=== PATIENT | male | born 1995 | race Native Hawaiian/Other Pacific Islander ===

== ENCOUNTER 2019-06-08 15:30 | Emergency (ER) | payer BC ==
[~2019-06-08] VITALS: Ht 167.6 cm; Wt 117.5 kg
[2019-06-08 16:50] VITALS: BP 153/80; TEMP 98
== END 2019-06-08 16:50 | disposition home or self-care (01) ==
LOC: ED 15:30
DX: S60.222A Contusion of left hand, initial encounter (principal); X58.XXXA Exposure to other specified factors, initial encounter; Y93.89 Activity, other specified; Y92.89 Other specified places as the place of occurrence of the external cause
CPT/HCPCS: 99282

== ENCOUNTER 2019-12-09 17:04 | Emergency (ER) | payer OTHER ==
[~2019-12-09] VITALS: Ht 167.6 cm; Wt 115.7 kg
[2019-12-09 17:58] LABS: PLATELET COUNT 233 K/uL (142-355)
[2019-12-09 18:04] LABS: POTASSIUM 3.6 mmol/L (3.6-5.2)
[2019-12-09 18:50] VITALS: BP 129/79; TEMP 97.2
== END 2019-12-09 18:50 | disposition home or self-care (01) ==
LOC: ED 17:04
PROVIDERS: Emergency Medicine
DX: J06.9 Acute upper respiratory infection, unspecified (principal); M70.22 Olecranon bursitis, left elbow; Z03.818 Encounter for observation for suspected exposure to other biological agents ruled out
CPT/HCPCS: 36415; 80053; 85027; 87502; 87635; 87651; 99283; U0002

== ENCOUNTER 2020-05-10 16:44 | Emergency (ER) | payer OTHER ==
[~2020-05-10] VITALS: Ht 167.6 cm; Wt 117.9 kg
[2020-05-10 18:11] LABS: PLATELET COUNT 237 K/uL (142-355)
[2020-05-10 18:19] LABS: POTASSIUM 4.4 mmol/L (3.6-5.2)
[2020-05-10 19:52] VITALS: BP 118/74; TEMP 98.3
== END 2020-05-10 19:52 | disposition home or self-care (01) ==
LOC: ED 16:44
PROVIDERS: Family Medicine
DX: S51.851A Open bite of right forearm, initial encounter (principal); W54.0XXA Bitten by dog, initial encounter; Y92.89 Other specified places as the place of occurrence of the external cause
CPT/HCPCS: 80053; 81000; 85027; 99283